=== PATIENT | female | born 1995 | race Two or more races ===

== ENCOUNTER 2024-01-30 18:03 | Emergency (ER) | payer OTHER ==
[~2024-01-30] VITALS: Ht 162.6 cm; Wt 142.3 kg
[2024-01-30] MEDS: SODIUM CHLORIDE 0.9% 1,000 ML IV ONE (22:39)
[2024-01-30] MEDS: METOCLOPRAMIDE HCL 5MG/ml INJ 2ml VIAL IV ONE (22:39)
[2024-01-30] MEDS: ACETAMINOPHEN 325 MG TAB PO ONE (22:48)
[2024-01-31 00:12] VITALS: BP 135/88; PULSE 64; RESP 16; TEMP 98.2; O2SAT 99
== END 2024-01-31 00:14 | disposition home or self-care (01) ==
LOC: ER 18:03
DX: S09.90XA Unspecified injury of head, initial encounter (principal); R51.9 Headache, unspecified; W20.8XXA Other cause of strike by thrown, projected or falling object, initial encounter; Y93.89 Activity, other specified; Y92.89 Other specified places as the place of occurrence of the external cause; Y99.8 Other external cause status
CPT/HCPCS: 70450; 96361; 96374; 99285; J2765; J7030; J7050